=== PATIENT | female | born 1985 | race Caucasian/White ===

== ENCOUNTER 2020-02-12 20:56 | Emergency (ER) | payer OTHER ==
[~2020-02-12] VITALS: Ht 154.9 cm; Wt 90.7 kg
[~2020-02-12 20:56] MED LIST: BACTRIM DS TAB1 EACH PO; CEPHALEXIN500 MG PO
== END 2020-02-13 01:37 | disposition home or self-care (01) ==
LOC: ED 20:56
DX: F15.10 Other stimulant abuse, uncomplicated (principal); F17.200 Nicotine dependence, unspecified, uncomplicated
CPT/HCPCS: 80053; 80176; 81001; 84443; 84703; 85025; 99284; G0480

== ENCOUNTER 2020-03-06 08:56 | Emergency (ER) | payer OTHER ==
[~2020-03-06] VITALS: Ht 154.9 cm; Wt 90.7 kg
--- OUTSIDE RECORDS SUMMARY | 2020-03-06 08:58 | XMS ---
PreManage Notification: MIESHA MENDOZA Security Credit Review Officer Events No recent Security Events currently on file CRITERIA MET - [facility] - 2 Visits in 30 Days [facility]: [phone] Michael has no Care Guidelines for this patient. E.D. VISIT COUNT (12 MO.) [address] [employer] TOTAL 4 NOTE: Visits indicate total known visits. ED/C VISIT TRACKING (12 MO.) 03/06/2020 08:56 [facility] [place] TYPE: Emergency COMPLAINT: - DENTAL PAIN 02/12/2020 20:58 [facility] [place] TYPE: Emergency COMPLAINT: - SUICIDAL THOUGHTS DIAGNOSES: - Nicotine dependence, unspecified, uncomplicated - Other stimulant abuse, uncomplicated - Suicidal ideations 06/25/2019 14:44 [facility] [place] TYPE: Emergency DIAGNOSES: - GENERAL - Electrocution, initial encounter 05/02/2019 09:42 [facility] TYPE: Emergency COMPLAINT: - POSSIBLE BROKEN FOOT - PAIN IN RIGHT HAND - PAIN IN RIGHT FOOT - LOC SWELL MASS LUMP RT UPPER LIMB DIAGNOSES: 0. Pain in right foot 1. Contusion of right hand, initial encounter 5. Striking against or struck by other objects, initial encounte 6. Laceration without foreign body, right foot, initial encounte INPATIENT VISIT TRACKING (12 MO.) No inpatient visits to display in this time frame [email or web address]
== END 2020-03-06 09:08 | disposition home or self-care (01) ==
LOC: ED 08:56
DX: K08.89 Other specified disorders of teeth and supporting structures (principal)